=== PATIENT | female | born 1950 | race Caucasian/White ===

== ENCOUNTER 2023-12-25 01:20 | Emergency (ER) | payer BC, MEDICAID, MEDICARE ==
[2023-12-25] MEDS: HYDROmorphone 2 MG/ML SDV IVPUSH ONE (02:00)
[2023-12-25 02:07] LABS: BLOOD UREA NITROGEN,BUN 17 mg/dL (7-18); BUN/CREATININE RATIO 15.5 (9-20); CALCIUM 9.3 mg/dL (8.6-10.2); CARBON DIOXIDE,CO2 30 mmol/L (21-32); CHLORIDE,CL 103 mmol/L (100-110); CREATININE 1.1 mg/dL (0.55-1.02); ESTIMATED GFR 54 mL/min (>60); GLUCOSE RANDOM 199 mg/dL (80-116); POTASSIUM,K 3.7 mmol/L (3.5-5.3); SODIUM,NA 141 mmol/L (135-145)
[2023-12-25 02:18] LABS: A/G RATIO 0.9; ALBUMIN 3.6 g/dL (3.2-4.6); ALKALINE PHOSPHATASE 161 IU/L (56-112); BASOPHILS PERCENT AUTO 0.2 % (0.2-1.5); BILIRUBIN TOTAL 1.8 mg/dL (0.1-1.3); EOSINOPHILS PERCENT AUTO 0.1 % (0.6-8.1); HEMATOCRIT 44.1 % (34.2-48.2); HEMOGLOBIN 14.6 g/dL (11.4-15.5); LYMPHOCYTES ABSOLUTE AUTO 1.3 x10-3/uL (1.0-4.4); LYMPHOCYTES PERCENT AUTO 14.2 % (18.4-52.1); MEAN CORPUSCULAR HEMOGLOBIN 29.9 pg (23.9-33.9); MEAN CORPUSCULAR HGB CONC 33.1 g/dL (31.9-34.8); MEAN CORPUSCULAR VOLUME 90.3 fL (76.7-100.5); MEAN PLATELET VOLUME 8.4 fL (7.1-12.4); MONOCYTES ABSOLUTE AUTO 0.4 x10-3/uL (0.3-1.0); MONOCYTES PERCENT AUTO 4.1 % (4.4-15.7); NEUTROPHILS ABSOLUTE AUTO 7.2 x10-3/uL (1.5-6.3); NEUTROPHILS PERCENT AUTO 81.4 % (30.8-76.2); PLATELET COUNT,PLT 280 x10(3)uL (151-488); PROTEIN TOTAL,TP 7.6 g/dL (6.0-8.0); RED BLOOD CELL COUNT 4.88 x10(6)uL (3.60-5.20); RED CELL DISTRIBUTION WIDTH 13.5 % (12.3-16.5); WHITE BLOOD CELL COUNT,WBC 8.9 x10-3/uL (3.0-10.3)
[2023-12-25 02:18] LABS: BILIRUBIN,URINE NEGATIVE (NEGATIVE); GLUCOSE,URINE 50 mg/dL (NORMAL); KETONES,URINE NEGATIVE (NEGATIVE); LEUKOCYTE ESTERASE,URINE NEGATIVE (NEGATIVE); NITRITE,URINE NEGATIVE (NEGATIVE); OCCULT BLOOD,URINE NEGATIVE (NEGATIVE); PROTEIN,URINE NEGATIVE (NEGATIVE); UROBILINOGEN,URINE NORMAL (NEGATIVE)
[2023-12-25 02:20] LABS: ALANINE AMINOTRANSFERASE,ALT 598 U/L (12-36); ASPARTATE AMNIOTRANSFERASE,AST 808 IU/L (5-25)
[2023-12-25 02:21] LABS: AMORPHOUS SEDIMENT,URINE MANY; APPEARANCE,URINE CLOUDY (CLEAR); BACTERIA,URINE FEW (NS); COLOR,URINE YELLOW (YELLOW); RBC,URINE 0-5 (0-5); SQUAMOUS EPITHELIAL CELLS,UR FEW (NS,R,O); WBC,URINE 0-5 (0-5)
[2023-12-25] MEDS: Sodium Chloride 0.9% 1,000 ML IV ONE (02:47)
[2023-12-25] MEDS: Iopamidol 755 Mg/ML 100 ML Bottle IV ONE (03:16)
[2023-12-25 04:26] LABS: ALBUMIN 3.2 g/dL (3.2-4.6); BILIRUBIN DIRECT 1.34 mg/dL (0.10-0.20); PROTEIN TOTAL,TP 6.9 g/dL (6.0-8.0)
== END 2023-12-25 05:10 | disposition home or self-care (01) ==
LOC: FB.ED 01:20
DX: K80.50 Calculus of bile duct without cholangitis or cholecystitis without obstruction (principal); E78.00 Pure hypercholesterolemia, unspecified; E66.9 Obesity, unspecified; Z79.82 Long term (current) use of aspirin; Z79.899 Other long term (current) drug therapy; Z90.49 Acquired absence of other specified parts of digestive tract; Z68.34 Body mass index [BMI] 34.0-34.9, adult
CPT/HCPCS: 36415; 74177; 80053; 80076; 81001; 83690; 85025; 96360; 99284; J7030; Q9967

== ENCOUNTER 2024-01-08 10:27 | Day surgery (SDC) | payer MEDICARE ==
[2024-01-08] MEDS ORDERED: Propofol 200 MG/20 ML SDV IV ONE (10:28)
[2024-01-08] MEDS ORDERED: HYDROmorphone 2 MG/ML SDV IV ONE (10:28)
[2024-01-08] MEDS ORDERED: ePHEDrine 50 MG/ML SDV IV ONE (10:28)
[2024-01-08] MEDS ORDERED: Midazolam 1 MG/ML 2 ML SDV IV ONE (10:28)
[2024-01-08] MEDS ORDERED: Ondansetron 4 MG/2 ML SDV IVPUSH ONE (10:28)
[2024-01-08] MEDS ORDERED: fentaNYL 100 MCG/2 ML SDV IV ONE (10:28)
[2024-01-08] MEDS ORDERED: Ketorolac 30 MG/ML SDV IVPUSH ONE (10:28)
[2024-01-08] MEDS ORDERED: Lactated Ringers 1,000 ML IV ONE (10:28)
[2024-01-08] MEDS ORDERED: Sugammadex Sodium 200 MG/2 ML VIAL IV ONE (10:28)
[2024-01-08] MEDS ORDERED: Rocuronium 100 MG/10 ML MDV IV ONE (10:28)
[2024-01-08] MEDS ORDERED: Sodium Chloride 0.9% 10 ML Syringe FLUSH PRN (10:30)
[2024-01-08] MEDS: ceFAZolin 2 GM Vial IVPUSH ONE (12:15)
[2024-01-08] MEDS: Scopalamine 1mg/3day Transdermal Patch TOP ONE (12:15)
[2024-01-08] MEDS: Lactated Ringers 1,000 ML IV SCH (12:16)
[2024-01-08] MEDS: Ondansetron 4 MG/2 ML SDV IVPUSH ONE (12:43)
[2024-01-08] MEDS: Lidocaine 1% with EPINEPHrine 1:100,000 20 ML MDV INJECT ONE (13:10)
[2024-01-08] MEDS: Bupivacaine 0.5% 30 ML SDV INJECT ONE (13:10)
[2024-01-08] MEDS: Midazolam 1 MG/ML 2 ML SDV IVPUSH ONE (13:50)
== END 2024-01-08 16:46 | disposition home or self-care (01) ==
LOC: FB.SDS 10:27
PROVIDERS: ATTEND Surgery
DX: K80.10 Calculus of gallbladder with chronic cholecystitis without obstruction (principal); E78.5 Hyperlipidemia, unspecified; K21.9 Gastro-esophageal reflux disease without esophagitis
CPT/HCPCS: 00790; 47562; 88304; 99100; A9270; J0665; J0690; J1170; J1885; J2250; J2405; J2704; J3010; J3490; J7120

== ENCOUNTER 2025-07-05 17:04 | Emergency (ER) | payer MEDICARE ==
[2025-07-05] MEDS: Nitrofurantoin Monohydrate/Macrocrystalline 100 MG Cap PO ONE (17:59)
== END 2025-07-05 18:02 | disposition home or self-care (01) ==
LOC: FB.ED 17:04
DX: R31.9 Hematuria, unspecified (principal); E78.00 Pure hypercholesterolemia, unspecified; K21.9 Gastro-esophageal reflux disease without esophagitis; E66.9 Obesity, unspecified; Z68.36 Body mass index [BMI] 36.0-36.9, adult; Z79.899 Other long term (current) drug therapy; Z79.82 Long term (current) use of aspirin
CPT/HCPCS: 99283; A9270